=== PATIENT | male | born 1985 | race Caucasian/White ===

== ENCOUNTER 2021-06-05 07:34 | Outpatient (CLI) | payer SELFPAY ==
--- NOTE | 2021-06-05 07:47 | CT_ITS ---
WS: [id number] CT ABDOMEN CONTRAST TECHNIQUE: Contrast enhanced CT of the abdomen with coronal and sagittal reformatted images. CLINICAL INFORMATION: LUQ ABDOMINAL PAIN COMPARISON: None. DLP: 649.[address] scans at [facility] use at least one of these dose optimization techniques: automated e xposure control; mA and/or kV adjustment per patient size (includes targeted exams where dose is matc hed to clinical indication); or iterative reconstruction. FINDINGS: Mild hepatomegaly. Mild diffuse fatty infiltration liver. Spleen size upper limits of normal measurin g 11.1 cm [id number]. Lung bases are well aerated. Normal caliber abdominal aorta. Celiac and SMA a re patent. Proximal renal arteries are patent. Normal pancreatic parenchymal enhancement. Normal port al vein and splenic vein. Normal GE junction. Distal stomach and proximal duodenum appear normal. Normal renal parenchymal enha ncement. No hydronephrosis. Adrenal glands are normal. Tiny fat-containing umbilical hernia. Gallblad freeman appears unremarkable. A few prominent lymph nodes along the central mesentery nonspecific but lik fabián reactive in a patient this age. The largest measuring 11 mm. Normal visualized lumbar spine. CT/CT abdomen w con* [id number] IMPRESSION: 1. Mild hepatomegaly. Spleen size upper limits of normal. Mild diffuse fatty i nfiltration liver. 2. Normal GE junction. 3. A few prominent lymph nodes in the central mesentery largest measuring appr oximately 11 mm nonspecific but most likely reactive in a patient this age. 4. Tiny fat-containing umbilical hernia. 5. Normal caliber abdominal aorta. 6. Visualized LEFT ribs and lung bases are normal.
[2021-06-05] MEDS: iohexol 300 mg/mL 50 mL Btl PO (08:57)
[2021-06-05] MEDS: iohexol 300 mg/mL 100 mL Btl IV (08:57)
== END 2021-06-05 07:35 | disposition home or self-care (01) ==
LOC: RAD 07:43
PROVIDERS: PCP Family Medicine; Visit Provider Family Medicine
DX: R10.12 Left upper quadrant pain (principal); R16.0 Hepatomegaly, not elsewhere classified; K42.9 Umbilical hernia without obstruction or gangrene
CPT/HCPCS: 74160

== ENCOUNTER → 2022-09-24 08:32 | Outpatient (BNVA) | payer SELFPAY | PROVIDERS: PCP Family Medicine; Visit Provider Family Medicine | DX: Z01.89 Encounter for other specified special examinations (principal) ==